=== PATIENT | female | born 1965 | race Caucasian/White ===

== ENCOUNTER 2017-05-20 14:38 | Outpatient (CLI) | payer BC ==
--- NOTE | 2017-05-20 17:53 | NM ---
RADIONUCLIDE PARATHYROID SCAN WITH SPECT CT: Date: 05/20/17 HISTORY: Hyperparathyroidism. RADIOPHARMACEUTICAL: 25 mCi technetium-99m sestamibi injected intravenously. FINDINGS: There is physiologic activity in the thyroid gland and the salivary glands. No foci of abnormally in creased uptake is seen in the region of the thyroid glands in the neck or chest on the initial or de layed images. IMPRESSION: Unremarkable exam. No scintigraphic evidence of parathyroid adenoma. POS: [facility]
== END 2017-05-20 14:39 | disposition home or self-care (01) ==
LOC: NM 14:38
PROVIDERS: ATTEND Otolaryngology Otolaryngic Allergy
DX: E21.0 Primary hyperparathyroidism (principal)
CPT/HCPCS: 78072; A9500

== ENCOUNTER 2020-05-09 07:57 | Emergency (ER) | payer BC ==
[2020-05-09] MEDS ORDERED: Lidocaine 1% PF 5 ML VIAL ONE (08:14)
[2020-05-09] MEDS ORDERED: Bacitracin 1 PK ONE (09:00)
[2020-05-09] MEDS ORDERED: Boostrix 0.5 ML VIAL ONE ×2 (09:00→09:04)
== END 2020-05-09 09:26 | disposition home or self-care (01) ==
LOC: ERS 07:57
DX: S67.195A Crushing injury of left ring finger, initial encounter (principal); S61.205A Unspecified open wound of left ring finger without damage to nail, initial encounter; W23.0XXA Caught, crushed, jammed, or pinched between moving objects, initial encounter
CPT/HCPCS: 90715